=== PATIENT | male | born 1975 | race Caucasian/White ===

== ENCOUNTER 2017-05-29 03:07 | Emergency (ER) | payer SELFPAY ==
[~2017-05-29] VITALS: Ht 167.6 cm; Wt 98.5 kg
[2017-05-29 03:17] VITALS: Ht 167.6 cm; Wt 98.5 kg
--- NOTE | 2017-05-29 04:44 | ERD ---
ER Documentation Chief Complaint Date/Time DATE: 05/29/17 TIME: 04:41 Chief Complaint possible left ear foreign body(rhodes) x 2 hours HPI This 41-year-old male patient reports feeling a insect in his left ear, put oil in ear, pt reports that he does not feel the insect moving any longer patient denies any pain, or discharge coming from his ear, denies any fever, or change in hearing. ROS All systems reviewed and are negative except as per history of present illness. Allergies Allergies: Coded Allergies: No Known Drug Allergies (Verified Allergy, Unknown, 05/29/17) Physical Exam Vitals Vital Signs Date Time Temp Pulse Resp B/P Pulse Ox O2 Delivery O2 Flow Rate FiO2 05/29/17 03:17 98.2 74 20 174/98 98 Physical Exam Const: Well-appearing, well-nourished, well-hydrated in no acute Head: Atraumatic Eyes: Normal Conjunctiva ENT: Left tympanic membrane not visualized, small insect partially obstructed visualized. Viscous lidocaine applied to the ear and insect removed with alligator forceps. Post insect removal lavage provided small amount of cerumen removed without any further insect or foreign body Neck: Full range of motion.. Resp: Respirations even and unlabored, no respiratory distress Cardio: Abd: Skin: No petechiae or rashes Back: Ext: Neur: Awake and alert Psych: Normal Mood and Affect Results 24 hrs Current Medications Medications (Trade) Dose Ordered Sig/Vish Route PRN Reason Start Time Stop Time Status Last Admin Dose Admin Lidocaine (Xylocaine (Viscous)) 15 ml ONCE ONCE PO 05/29/17 05:00 05/29/17 05:01 DC 05/29/17 05:03 Departure Diagnosis: Primary Impression: FB ear Encounter type: initial encounter Laterality: left Qualified Code: T16.2XXA - FB ear, left, initial encounter Condition: Good Additional Instructions: Thank you for for coming to [facility] for your care today. Please ask your nurse or provider if you have questions about your care today and do not leave until all your questions have been answered. Please use any medications given as directed and follow-up with your doctor (or the doctor you were referred to) in the next 2-3 days. If you do not have a primary care doctor you may follow up at the [facility] (listed below). You may also use motrin and tylenol as needed for fever and/or pain unless instructed otherwise by your provider or nurse. Indications for more urgent follow-up have been discussed, but you may return to the Emergency Department at ANY time for any worrisome or worsening symptoms. If you have abdominal pain, please know that no test or exam you received is perfect and you should follow up within 8 hours for continued pain. If you had any imaging studies today, such as an X-Ray or CT Scan, these studies will be reviewed later by a radiologist. You will be called if there are important findings that were not identified today, so make sure the contact information you provided at registration is correct. If you received any narcotic pain control medicine today, such as Vicodin, Morphine or Dilaudid, your coordination and judgment may be affected for a number of hours. Please do not drive or operate heavy machinery, and you may want someone to assist you at home. If you were given a prescription for narcotic medication, be aware that it is very addictive- use sparingly and only if necessary. RAEGAN HODGE May 29, 2017 04:44
[2017-05-29] MEDS ORDERED: LIDOCAINE 2% VISC 15 ML CUP PO ONE (05:00)
[2017-05-29] MEDS ORDERED: NPH10OT LEFT EAR (06:09)
[2017-05-29 06:16] VITALS: BP 166/80; RESP 18; TEMP 98.3
== END 2017-05-29 06:24 | disposition home or self-care (01) ==
LOC: FTE 03:07
DX: T16.2XXA Foreign body in left ear, initial encounter (principal); X58.XXXA Exposure to other specified factors, initial encounter; Y92.9 Unspecified place or not applicable